=== PATIENT | female | born 1930 | race Caucasian/White ===

== ENCOUNTER 2017-01-11 06:13 | Emergency (ER) | payer OTHER, MEDICARE ==
[~2017-01-11] VITALS: Ht 158.8 cm; Wt 77.1 kg
[~2017-01-11 06:13] MED LIST: VIBRAMYCIN100 MG PO
[2017-01-11 07:10] VITALS: BP 114/72
[2017-01-11] MEDS ORDERED: LEVOTHYROXINE50 MCG PO (07:51)
[2017-01-11] MEDS ORDERED: PREDNISONE10 M2 PO (07:53)
--- NOTE | 2017-01-11 07:53 | ED SKIN/ALLERGY COMPLAINT ---
History of Present Illness General Chief Complaint: Skin Rash/ Abcess Stated Complaint: " RASH ALL OVER BODY" Source: patient Exam Limitations: no limitations Vital Signs & Intake/Output Vital Signs & Intake/Output Vital Signs Date Time Temp Pulse Resp B/P B/P Pulse O2 O2 Flow FiO2 Mean Ox Delivery Rate 01/11 0753 97 01/11 0710 97.0 58 16 114/72 97 Room Air Allergies Coded Allergies: Sulfa (Sulfonamide Antibiotics) (Intermediate, RASH 01/11/17) Penicillins (UNKNOWN 12/24/15) Reconcile Medications Levothyroxine Sodium 50 MCG TABLET 1 TAB PO DAILY AC THYROID (Reported) Prednisone 10 MG TABLET 1 TAB PO DAILY ALLERGIC REACTION TAKE 2 TABS FOR 3 DAYS THEN TAKE 1 TAB FOR 3 DAYS Triage Note: PT STATES SHE HAS A RASH ALL OVER HER BODY. PT STATES HER RASH IS NOT ITCHY. PT STATES THIS HAPPEND LAST EVENING. PT REPORTS SHE DID HAVE CELLUILITS TO HER RIGHT UPPER ARM AND WAS PUT ON BACTRIM DS AND FINISHED THE MED SATUREDAY AM. Triage Nurses Notes Reviewed? yes HPI: Patient presents to the emergency department with a diffuse itchy body rash. Patient finished a course of Bactrim this morning after diagnosis of cellulitis. Patient states the cellulitis, which was in her right arm, has resolved however last night she developed this diffuse body rash which worsened today after taking the last dose of Bactrim. Patient denies any difficulty breathing or swallowing. There is no swelling. There are no fevers or chills. There is no nausea or vomiting. Past History Travel History Traveled to [place] past 21 day No Medical History Any Pertinent Medical History? see below for history Cardiovascular: LBB Endocrine: hypothyroidism Surgical History Surgical History: non-contributory Psychosocial History What is your primary language Tuvaluan Tobacco Use: Never used ETOH Use: occasional use Illicit Drug Use: denies illicit drug use Family History Hx Contributory? No Review of Systems Review of Systems Constitutional: Reports: no symptoms. EENTM: Reports: no symptoms. Respiratory: Reports: no symptoms. Cardiovascular: Reports: no symptoms. GI: Reports: no symptoms. Musculoskeletal: Reports: no symptoms. Skin: Reports: see HPI, rash. Neurological/Psychological: Reports: no symptoms. Immunologic/Allergic: Reports: no symptoms. Physical Exam Physical Exam General Appearance: well developed/nourished, alert, awake, mild distress Head: atraumatic Eyes: Bilateral: PERRL, EOMI. Ears, Nose, Throat: normal pharynx, normal ENT inspection, hearing grossly normal Neck: normal inspection, supple, full range of motion Respiratory: normal breath sounds, chest non-tender, no respiratory distress, lungs clear Cardiovascular: regular rate/rhythm, normal peripheral pulses Gastrointestinal: normal bowel sounds, soft, non-tender, no organomegaly Back: normal inspection, normal range of motion Neurologic/Psych: no motor/sensory deficits, awake, alert, oriented x 3, normal gait, normal mood/affect Skin: rash Skin Problem Location: generalized Skin Problem Character: urticarial Progress Differential Diagnosis: allergic reaction Plan of Care: Current Medications Sig/Johnnie Start time Last Medication Dose Stop Time Status Admin Prednisone 60 MG ONCE ONE 01/11 0800 UNVr 01/11 01/11 0801 0752 Departure Departure Disposition: HOME OR SELF CARE Condition: Stable Clinical Impression Primary Impression: Allergic reaction caused by a drug Referrals: JOCELYNE MCKEON,CJ Tucker (PCP/Family) Additional Instructions: DO NOT TAKE ANY MEDICATIONS THAT HAVE SULFA TAKE PREDNISONE DIRECTED RETURN FOR ANY CONCERNS Departure Forms: Customer Survey General Discharge Information Prescriptions: Current Visit Scripts Prednisone 1 TAB PO DAILY #9 TAB TAKE 2 TABS FOR 3 DAYS THEN TAKE 1 TAB FOR 3 DAYS
== END 2017-01-11 07:50 ==
LOC: ERH 06:13
DX: T36.91XA Poisoning by unspecified systemic antibiotic, accidental (unintentional), initial encounter (principal); R21 Rash and other nonspecific skin eruption